=== PATIENT | female | born 1985 | race Caucasian/White ===

== ENCOUNTER 2020-05-20 12:38 | Inpatient (IN) | payer MEDICAID, OTHER ==
[~2020-05-20] VITALS: Ht 154.9 cm; Wt 87.1 kg
[2020-05-20] MEDS ORDERED: DEXT 5%/LR + PITOCIN 20UNITS/L 1,000 ML IV SCH ×2 (13:45→16:15)
[2020-05-20] MEDS ORDERED: LACTATED RINGERS 1,000 ML IV SCH (13:45)
[2020-05-20] MEDS ORDERED: METHYLERGONOVINE MALEATE 0.2 MG/ML IM PRN (13:45)
[2020-05-20] MEDS ORDERED: CARBOPROST TROMETHAMINE 250 MCG/ML AMPUL IM PRN (13:45)
[2020-05-20] MEDS ORDERED: NALOXONE HCL 0.4 MG/ML 1ML VIAL IM PRN (13:45)
[2020-05-20] MEDS ORDERED: BUTORPHANOL TARTRATE 2 MG/ML VIAL IM PRN (14:30)
[2020-05-20] MEDS ORDERED: BUTORPHANOL TARTRATE 2 MG/ML VIAL IV PRN (14:30)
[2020-05-20 14:41] LABS: EOSINOPHILS % 0.3 % (0.0-5.0); HEMATOCRIT. 37.7 % (36.0-48.0); HEMOGLOBIN. 12.7 g/dL (12.0-16.0); LYMPHOCYTES % 12.6 % (20.0-50.0); MEAN CORPUSCULAR HEMOGLOBIN 28.8 pg (28.0-32.0); MEAN CORPUSCULAR VOLUME 85.6 fL (81.0-99.0); MEAN PLATELET VOLUME 9.3 fl (7.4-10.4); MONOCYTES % 6.1 % (2.0-8.0); PLATELET 170 x1000/uL (130-400); RED BLOOD CELL COUNT 4.41 mill/uL (4.2-5.4); RED CELL DISTRIBUTION WIDTH 16.1 % (11.6-14.6)
[2020-05-20 14:41] LABS: CLARITY URINE CLEAR (CLEAR); COLOR URINE YELLOW (YELLOW); KETONES URINE NEGATIVE (NEGATIVE); LEUKOCYTE ESTERASE URINE NEGATIVE (NEGATIVE); NITRITE URINE NEGATIVE (NEGATIVE); OCCULT BLOOD URINE 1+ (NEGATIVE); PH URINE 7.5 (4.5-8.0); PROTEIN URINE NEGATIVE (NEGATIVE); SPECIFIC GRAVITY URINE 1.009 (1.005-1.030); UROBILINOGEN URINE 0.2 E.U./dL (0.2-1.0)
[2020-05-20 15:27] LABS: OPIATES URINE SCREEN NEGATIVE (NEGATIVE); PHENCYCLIDINE URINE SCREEN NEGATIVE (NEGATIVE)
[2020-05-20 15:28] LABS: *AMPHETAMINES SCREEN URINE NEGATIVE (NEGATIVE); *BARBITURATES SCREEN URINE NEGATIVE (NEGATIVE); *BENZODIAZEPINES SCREEN URINE NEGATIVE (NEGATIVE); *COCAINE SCREEN URINE NEGATIVE (NEGATIVE); CANNABINOID URINE SCREEN NEGATIVE (NEGATIVE); METHADONE URINE SCREEN NEGATIVE (NEGATIVE)
[2020-05-20 15:56] LABS: HEPATITIS B SURFACE ANTIGEN NEGATIVE
[2020-05-20] MEDS ORDERED: BISACODYL 10MG SUPP PR PRN (16:15)
[2020-05-20] MEDS ORDERED: ACETAMINOPHEN WITH CODEINE 300/30MG TABLET PO PRN (16:15)
[2020-05-20] MEDS ORDERED: IBUPROFEN 800MG TABLET PO PRN (16:15)
[2020-05-20] MEDS ORDERED: GLYCERIN/WITCH HAZEL LEAF MEDICATED PAD TOP PRN (16:15)
[2020-05-20] MEDS ORDERED: IBUPROFEN 400MG TABLET PO PRN (16:15)
[2020-05-20] MEDS ORDERED: BENZOCAINE/LANOLIN/ALOE VERA SPRAY TOP PRN (16:15)
[2020-05-20] MEDS ORDERED: LANOLIN OINT 7GM TUBE TOP PRN (16:15)
[2020-05-20] MEDS ORDERED: DIPHENHYDRAMINE 25MG CAPSULE PO PRN (16:15)
[2020-05-20] MEDS ORDERED: HEMORRHOIDAL SUPP PR PRN (16:15)
[2020-05-20 17:30] VITALS: BP 127/61
[2020-05-20 17:44] LABS: HEMATOCRIT. 36.9 % (36.0-48.0); HEMOGLOBIN. 12.3 g/dL (12.0-16.0); MEAN CORPUSCULAR HEMOGLOBIN 28.6 pg (28.0-32.0); MEAN CORPUSCULAR VOLUME 85.9 fL (81.0-99.0); MEAN PLATELET VOLUME 9.2 fl (7.4-10.4); PLATELET 169 x1000/uL (130-400); RED CELL DISTRIBUTION WIDTH 16.2 % (11.6-14.6)
[2020-05-20 17:52] LABS: INR 0.9; PARTIAL THROMBOPLASTIN TIME 27.4 sec (23.4-31.0); PROTHROMBIN TIME 9.9 sec (9.6-11.0)
[2020-05-20 18:25] LABS: PLATELET ESTIMATE NORMAL
[2020-05-20 18:30] VITALS: BP 112/51
[2020-05-20] MEDS ORDERED: DOCUSATE SODIUM 100MG CAPSULE PO SCH (21:00)
[2020-05-20] MEDS: SIMETHICONE 80MG TABLET CHEW PO SCH (21:16)
[2020-05-20 22:00] VITALS: BP 107/55
[2020-05-21 06:00] VITALS: BP 102/59
[2020-05-21 08:15] VITALS: BP 109/54
[2020-05-21] MEDS: PRENATAL VIT/FE FUMARATE/FA TABLET PO SCH (08:22)
[2020-05-21] MEDS: FERROUS SULFATE 325MG TABLET PO SCH ×2 (08:22→15:21)
[2020-05-21] MEDS: AMOXICILLIN/POTASSIUM CLAVULANATE 875/125MG TAB PO SCH (15:21)
[2020-05-21 16:46] VITALS: BP 127/55
[2020-05-21 19:30] VITALS: BP 116/67
[2020-05-21] MEDS: SIMETHICONE 80MG TABLET CHEW PO SCH (21:43)
[2020-05-22 04:40] VITALS: BP 104/63
[2020-05-22 08:01] VITALS: BP 105/53
[2020-05-22] MEDS: FERROUS SULFATE 325MG TABLET PO SCH (08:51)
[2020-05-22] MEDS: PRENATAL VIT/FE FUMARATE/FA TABLET PO SCH (08:52)
[2020-05-22] MEDS: AMOXICILLIN/POTASSIUM CLAVULANATE 875/125MG TAB PO SCH (08:52)
[2020-05-22] MEDS ORDERED: INFLUENZA VACCINE 05/PF 0.5 ML VIAL IM ONE (09:00)
[2020-05-22 09:33] LABS: BASOPHILS % 0.6 % (0.0-2.0); EOSINOPHILS % 2.2 % (0.0-5.0); HEMATOCRIT. 36.7 % (36.0-48.0); HEMOGLOBIN. 12.2 g/dL (12.0-16.0); MEAN CORPUSCULAR HEMOGLOBIN 28.7 pg (28.0-32.0); MEAN CORPUSCULAR VOLUME 86.5 fL (81.0-99.0); MEAN PLATELET VOLUME 8.9 fl (7.4-10.4); MONOCYTES % 7.6 % (2.0-8.0); NEUTROPHILS % 74.6 % (40.0-76.0); PLATELET 188 x1000/uL (130-400); RED BLOOD CELL COUNT 4.24 mill/uL (4.2-5.4); RED CELL DISTRIBUTION WIDTH 16.2 % (11.6-14.6)
== END 2020-05-22 10:50 | disposition home or self-care (01) | DRG 560 ==
LOC: 8 EST LDRP 12:38 → OBSVTOIN 12:38 → 8EST 17:17
PROVIDERS: ADMIT Obstetrics & Gynecology; ATTEND Obstetrics & Gynecology
PROC: 10E0XZZ Delivery of Products of Conception, External Approach (ICD-10-PCS; principal; 2020-05-20)
PROC: 0HQ9XZZ Repair Perineum Skin, External Approach (ICD-10-PCS; 2020-05-20)
DX: O62.3 Precipitate labor (principal); O77.0 Labor and delivery complicated by meconium in amniotic fluid; O75.3 Other infection during labor; O70.0 First degree perineal laceration during delivery; Z3A.40 40 weeks gestation of pregnancy; Z37.0 Single live birth
CPT/HCPCS: 36415; 80305; 81003; 85025; 86592; 86703; 86762; 86850; 86900; 87340; 90686; 99281; G0378; J0595; J2590